=== PATIENT | female | born 1965 | race Caucasian/White ===

== ENCOUNTER 2018-02-28 18:02 | Emergency (ER) | payer OTHER ==
--- NOTE | 2018-02-28 18:35 | ER Document Report ---
ED General - General Chief Complaint: Jaundice Stated Complaint: ABDOMINAL PAIN Time Seen by Provider: 02/28/18 18:18 Notes: Patient is a 52-year-old female without chronic medical problems who presents with 1 week of progressively worsening jaundice. She states that she was told at work that she looked yellow approximately 1 week ago and friends have become more concerned throughout the week eventually prompted him to encourage her to come to the emergency department today. Patient denies any other additional significant symptoms although notes occasionally for she feels somewhat nauseated and has some mild upper abdominal discomfort although states that this is overall quite mild and not of significant concern to her. She also notes that she intermittently feels somewhat short of breath. She denies any history of similar symptoms in the past. Nothing improves or worsens her symptoms. She denies any history of IV drug abuse, history of hepatitis B or C , risky sexual practices, Tylenol use, or prescription medication use. She has not seen her primary care doctor regarding today's concerns. She denies any associated fever or constitutional symptoms. TRAVEL OUTSIDE OF THE [place] IN LAST 30 DAYS: No - Related Data Allergies/Adverse Reactions: No Known Allergies Allergy (Verified 02/28/18 18:05) Past Medical History - General Information source: Patient - Social History Smoking Status: Never Smoker Frequency of alcohol use: Occasional Drug Abuse: None Lives with: Alone Family History: Reviewed & Not Pertinent - Past Medical History Cardiac Medical History: Reports: Hx Hypertension - NEWLY DX X 1 WK Denies: Hx Heart Attack Pulmonary Medical History: Denies: Hx Asthma Neurological Medical History: Denies: Hx Cerebrovascular Accident, Hx Seizures GI Medical History: Denies: Hx Hepatitis, Hx Hiatal Hernia, Hx Ulcer Infectious Medical History: Denies: Hx Hepatitis Past Surgical History: Denies: Hx Mastectomy, Hx Open Heart Surgery, Hx Pacemaker Review of Systems - Review of Systems Notes: Constitutional: Negative for fever. HENT: Negative for sore throat. Eyes: Negative for visual changes. Cardiovascular: Negative for chest pain. Respiratory: Positive for mild, occasional shortness of breath Gastrointestinal: Positive for abdominal swelling and nausea Genitourinary: Negative for dysuria. Musculoskeletal: Negative for back pain. Skin: Positive for jaundice Neurological: Negative for headaches, weakness or numbness. 10 point ROS negative except as marked above and in HPI. Physical Exam - Vital signs Vitals: Temp Pulse Resp BP Pulse Ox 97.5 F 94 18 112/70 94 02/28/18 18:14 02/28/18 18:14 02/28/18 18:14 02/28/18 18:14 02/28/18 18:14 Notes: PHYSICAL EXAMINATION: GENERAL: Appears older than stated age, no acute distress, very jaundiced HEAD: Atraumatic, normocephalic. EYES: Pupils equal round and reactive to light, extraocular movements intact, significant scleral icterus bilaterally, conjunctiva are normal. ENT: nares patent, oropharynx clear without exudates. Moderately dry mucous membranes. NECK: Normal range of motion, supple without lymphadenopathy LUNGS: Breath sounds clear to auscultation bilaterally and equal. No wheezes rales or rhonchi. HEART: Regular rate and rhythm without murmurs ABDOMEN: Soft, mild epigastric and right upper quadrant abdominal tenderness to palpation without rebound or guarding. Mild abdominal ascites. EXTREMITIES: Normal range of motion, no pitting or edema. No cyanosis. NEUROLOGICAL: No focal neurological deficits. Moves all extremities spontaneously and on command. PSYCH: Normal mood, normal affect. SKIN: Warm, diffuse jaundice Course - Re-evaluation Re-evalutation: 02/28/18 18:30 Presentation of a 52-year-old female without chronic medical problems who is visibly icteric with associated abdominal ascites. The patient has severe scleral icterus and jaundice on virtually every aspect of her skin. Patient has no known history of hepatitis C, Tylenol abuse, uses no chronic daily medications. She has never had a cholecystectomy but denies any focal upper abdominal pain or vomiting as part of her presentation today. Symptoms were first noted approximately a week ago and become more severe since onset. She denies any risk factors for hepatitis C other than having a blood transfusion in 2009 or . She does admit to drinking between 1-2 shots daily but is adamant that she does not have to drink and does not drink during the day. Will proceed with labs, right upper quadrant ultrasound, and plan for transfer to a facility with hepatology. 02/28/18 19:50 Right upper quadrant ultrasound shows findings of gallstones with wall thickening. However patient continues to not complain of any abdominal pain and her common bile duct is normal caliber making an acute choledocholithiasis with associated cholecystitis unlikely. Her clinical history is likewise not consistent with this diagnosis. Ultrasound does show some ascites. She has been made n.p.o. IV Zosyn has been started as well as IV fluids. Laboratories demonstrate markedly elevated bilirubin levels at 14, transaminitis with a dominance of AST, markedly elevated LDH, as well as a leukocytosis. Alcohol level negative. Drug screen negative. Tylenol level is 15 well below toxic level and patient again denies any chronic acetaminophen use. I have contacted [facility] for transfer and I am awaiting a call back. Will also begin potassium repletion as patient is markedly hypokalemic at 2.2 02/28/18 20:04 I discussed this case with Dr. Solomon the GI physician webmethods consultant at [facility] and he has recommended the patient be transferred to a tertiary center with transplant such as [place] or [facility] as he does not believe that this is likely gallstone in origin and that the patient may require an emergent liver transplant. 02/28/18 20:46 I discussed this case with the facing grinder at [facility] who agrees the patient needs to come there. I spoke with the ER physician Dr. Salazar who has accepted the patient for transfer. 02/28/18 22:27 Patient has remained hemodynamically within acceptable limits. Transport has arrived for patient transfer and she is appropriate for transport at this time. - Vital Signs Vital signs: Temp Pulse Resp BP Pulse Ox 97.8 F 94 24 H 120/77 94 02/28/18 22:21 02/28/18 18:14 02/28/18 22:01 02/28/18 22:00 02/28/18 22:01 - Laboratory Result Diagrams: 02/28/18 18:26 02/28/18 18:26 Laboratory results interpreted by me: 02/28/18 02/28/18 02/28/18 18:26 18:26 18:26 WBC 17.0 H RBC 3.07 L Hgb 11.8 L Hct 35.0 L MCV 114 H MCH 38.5 H RDW 18.7 H Plt Count 89 L Seg Neutrophils % 80.7 H Absolute Neutrophils 13.7 H PT 20.2 H APTT 76.0 H Sodium 132.0 L Potassium 2.2 L* Chloride 82 L Carbon Dioxide 31 H Calcium 8.1 L Total Bilirubin 14.3 H Direct Bilirubin 13.4 H AST 628 H ALT 138 H Alkaline Phosphatase 522 H Lactate Dehydrogenase 2026 H Albumin 3.0 L Urine Protein Urine Ketones Urine Blood Urine Bilirubin Urine Urobilinogen 02/28/18 18:47 WBC RBC Hgb Hct MCV MCH RDW Plt Count Seg Neutrophils % Absolute Neutrophils PT APTT Sodium Potassium Chloride Carbon Dioxide Calcium Total Bilirubin Direct Bilirubin AST ALT Alkaline Phosphatase Lactate Dehydrogenase Albumin Urine Protein 100 H Urine Ketones TRACE H Urine Blood SMALL H Urine Bilirubin MODERATE H Urine Urobilinogen 4.0 H - Diagnostic Test Radiology reviewed: Reports reviewed Critical Care Note - Critical Care Note Total time excluding time spent on procedures (mins): 37 Comments: Critical care time spent obtaining history from patient or surrogate, discussions with consultants, development of treatment plan with patient or surrogate, evaluation of patient's response to treatment, examination of patient , ordering and performing treatments and interventions, ordering and review of laboratory studies, re-evaluation of patient's condition, ordering and review of radiographic studies and review of old charts Discharge - Discharge Clinical Impression: Gallstones, Jaundice, Hypokalemia Liver failure Qualifiers: Liver failure chronicity: acute Hepatic coma status: without hepatic coma Qualified Code(s): K72.00 - Acute and subacute hepatic failure without coma Condition: Fair Disposition: [place]
[2018-02-28 18:56] LABS: ABSOLUTE BASOPHILS # (AUTO) 0.1 10^3/uL (0.0-0.2); ABSOLUTE LYMPHOCYTES (AUTO) 2.3 10^3/uL (0.5-4.7); ABSOLUTE MONOCYTES (AUTO) 0.9 10^3/uL (0.1-1.4); ABSOLUTE NEUT (AUTO) 13.7 10^3/uL (1.7-8.2); BASOPHILS % (AUTO) 0.4 % (0-2); EOSINOPHILS % (AUTO) 0.1 % (0-6); HEMOGLOBIN 11.8 g/dL (12.0-15.5); INTERNATIONAL RATION (INR) 1.64; LYMPHOCYTES % (AUTO) 13.3 % (13-45); MEAN CORPUSCULAR HEMOGLOBIN 38.5 pg (27.0-33.4); MEAN CORPUSCULAR HGB CONC 33.8 g/dL (32.0-36.0); MONOCYTES % (AUTO) 5.5 % (3-13); PROTHROMBIN TIME 20.2 SEC (11.4-15.4); RED BLOOD COUNT 3.07 10^6/uL (3.72-5.28); RED CELL DISTRIBUTION WIDTH 18.7 % (11.5-14.0); SEGMENTED NEUTROPHILS % (AUTO) 80.7 % (42-78); TOTAL CELLS COUNTED % (AUTO) 100 %
[2018-02-28 19:06] LABS: APPEARANCE,URINE CLOUDY; BILIRUBIN,URINE MODERATE (NEGATIVE); GLUCOSE, URINE NEGATIVE (NEGATIVE); KETONES,URINE TRACE mg/dL (NEGATIVE); LEUKOCYTE ESTERASE,URINE NEGATIVE (NEGATIVE); NITRITE,URINE NEGATIVE (NEGATIVE); PROTEIN,URINE 100 mg/dL (NEGATIVE); URINE SPECIFIC GRAVITY 1.024
[2018-02-28 19:07] LABS: COLOR,URINE GREEN
[2018-02-28 19:08] LABS: ACETAMINOPHEN 15 ug/mL (10-30); ALANINE AMINOTRANSFERASE 138 U/L (9-52); ALKALINE PHOSPHATASE 522 U/L (38-126); ANION GAP 19 (5-19); ASPARTATE AMINO TRANSFERASE 628 U/L (14-36); BILIRUBIN,DIRECT 13.4 mg/dL (0.0-0.4); BILIRUBIN,TOTAL 14.3 mg/dL (0.2-1.3); BLOOD UREA NITROGEN 9 mg/dL (7-20); CALCIUM 8.1 mg/dL (8.4-10.2); CARBON DIOXIDE 31 mmol/L (22-30); CHLORIDE 82 mmol/L (98-107); GLUCOSE 84 mg/dL (75-110); LDH 2026 U/L (313-618); LIPASE 244.6 U/L (23-300); TOTAL PROTEIN 6.7 g/dL (6.3-8.2)
[2018-02-28 19:13] LABS: POTASSIUM 2.2 mmol/L (3.6-5.0)
--- NOTE | 2018-02-28 19:13 | RADIOLOGY REPORT (SQ) ---
EXAM DESCRIPTION: CHEST SINGLE VIEW COMPLETED DATE/TIME: 02/28/2018 7:03 pm REASON FOR STUDY: sob COMPARISON: 06/21/2011 EXAM PARAMETERS: NUMBER OF VIEWS: One view. TECHNIQUE: Single frontal radiographic view of the chest acquired. RADIATION DOSE: NA LIMITATIONS: None. FINDINGS: LUNGS AND PLEURA: No acute opacities, masses or pneumothorax. No pleural effusion. MEDIASTINUM AND HILAR STRUCTURES: Stable. HEART AND VASCULAR STRUCTURES: Heart normal in size. Normal vasculature. BONES: No acute findings. HARDWARE: None in the chest. OTHER: No other significant finding. IMPRESSION: NO ACUTE RADIOGRAPHIC FINDING IN THE CHEST. TECHNICAL DOCUMENTATION: JOB ID: [id number] [place]-72 2010 [employer]- All Rights Reserved Reading location - IP/workstation name: [email or web address]
[2018-02-28 19:20] LABS: PLATELET COUNT 89 10^3/uL (150-450)
[2018-02-28 19:24] LABS: URINE AMPHETAMINES SCREEN NEGATIVE; URINE BARBITURATES SCREEN NEGATIVE; URINE BENZODIAZEPINES SCREEN NEGATIVE; URINE COCAINE SCREEN NEGATIVE; URINE MARIJUANA (THC) SCREEN NEGATIVE; URINE METHADONE SCREEN NEGATIVE; URINE PHENCYCLIDINE SCREEN NEGATIVE
[2018-02-28 19:27] LABS: HYPOCHROMASIA 1+; POLYCHROMASIA 1+
[2018-02-28 19:28] LABS: ANISOCYTOSIS 1+; POIKILOCYTOSIS 1+; STOMATOCYTES SLIGHT; TARGET CELLS 1+
[2018-02-28 19:35] LABS: PLATELET COMMENT DECREASED; PLATELET LARGE PRESENT
[2018-02-28 19:36] LABS: MEAN CORPUSCULAR VOLUME 114 fl (80-97)
--- NOTE | 2018-02-28 19:41 | RADIOLOGY REPORT (SQ) ---
EXAM DESCRIPTION: U/S ABDOMEN LIMITED W/O DOP COMPLETED DATE/TIME: 02/28/2018 7:12 pm REASON FOR STUDY: jaundice, ruq pain COMPARISON: None. TECHNIQUE: Dynamic and static grayscale images acquired of the right upper quadrant and recorded on PACS. Additional selected color Doppler and spectral images recorded. LIMITATIONS: Study limited due to acoustical interference from fat or from air in the bowel. FINDINGS: PANCREAS: Parts or all of the pancreas poorly seen secondary to acoustical interference fr om fat or from air in the bowel. LIVER: Echotexture is coarse with increased echogenicity consistent with fatty infiltration. No mass es. LIVER VASCULATURE: Normal directional flow of the main portal vein and hepatic veins. GALLBLADDER: Multiple stones. Mild wall thickness. Small amount of pericholecystic fluid. ULTRASOUND-DETECTED FITZPATRICK'S SIGN: Negative. INTRAHEPATIC DUCTS AND COMMON DUCT: CBD and intrahepatic ducts normal caliber. No filling defects. INFERIOR VENA CAVA: Normal flow. AORTA: No aneurysm. RIGHT KIDNEY: Normal size. Normal echogenicity. No solid or suspicious masses. No hydronephrosis. No calcifications. PERITONEAL CAVITY AND RIGHT PLEURAL SPACE: Small amount of right upper quadrant free fluid. OTHER: No other significant finding. IMPRESSION: Multiple gallstones with mild wall thickening and pericholecystic free fluid. Small [place] unt of right upper quadrant free fluid. Consider surgical consultation. TECHNICAL DOCUMENTATION: JOB ID: [id number] [place]-72 2010 [employer]- All Rights Reserved Reading location - IP/workstation name: [email or web address]
[2018-02-28] MEDS ORDERED: NORMAL SALINE 1000 ML 1,000 ML IV ONE (19:46)
[2018-02-28] MEDS ORDERED: PIPERACILLIN/TAZOBACTAM 3.375 GM VIAL IV ONE (19:46)
[2018-02-28 19:48] LABS: ALCOHOL < 10 mg/dL (NONE DETECTED)
[2018-02-28] MEDS: POTASSI CL 20 MEQ/50 ML RIDER 20 MEQ/50 ML RTUPB IV SCH ×2 (20:40→22:35)
[2018-02-28] MEDS: MAGNESIUM SULFATE/D5W 1 GM/100 ML RTUPB IV SCH ×2 (20:42→22:36)
[2018-02-28 22:20] VITALS: BP 120/77
--- NOTE | 2018-03-01 00:44 | EKG REPORT ---
SEVERITY:- ABNORMAL ECG - SINUS RHYTHM VENTRICULAR PREMATURE COMPLEX PROBABLE LVH WITH SECONDARY REPOL ABNRM VS ISCHEMIA : Confirmed by: Fariba Hu 01-Mar-2018 00:42:59
[2018-03-01 13:23] LABS: PATH REVIEW PATHOLOGIST REVIEWED
[2018-03-02 07:43] LABS: HEPATITIS A AB IGM Negative (Negative); HEPATITIS B CORE AB IGM Negative (Negative); HEPATITS B SURFACE ANTIGEN Negative (Negative)
[2018-03-02 07:53] LABS: HEPATITIS C VIRUS ANTIBODY 0.1 s/co ratio (0.0-0.9)
== END 2018-02-28 23:34 | disposition short-term general hospital (02) ==
LOC: ER 18:02
DX: R17 Unspecified jaundice (principal); K80.80 Other cholelithiasis without obstruction; E87.6 Hypokalemia; R11.0 Nausea; I10 Essential (primary) hypertension
CPT/HCPCS: 93005; 99291; 96365; 96366; 96368; 36415; 80307 ×3; 83615; 83690; 84703; 85025; 85610; 85730; 80053; 81001; 80074; 71045; 76705; 93010; J3475; J3480; J7030